=== PATIENT | female | born 1990 | race Asian ===

== ENCOUNTER 2018-03-17 16:42 | Emergency (ER) | payer SELFPAY ==
[~2018-03-17] VITALS: Ht 165.1 cm; Wt 74.1 kg
[2018-03-17] MEDS ORDERED: DIAZEPAM 5 MG TABLET PO ONE (19:00)
[2018-03-17 20:00] VITALS: BP 140/85
== END 2018-03-17 20:06 | disposition home or self-care (01) ==
LOC: EMS 16:43
DX: S06.0X0A Concussion without loss of consciousness, initial encounter (principal); M53.3 Sacrococcygeal disorders, not elsewhere classified; Z88.5 Allergy status to narcotic agent; Z88.6 Allergy status to analgesic agent; V49.40XA Driver injured in collision with unspecified motor vehicles in traffic accident, initial encounter; Y93.89 Activity, other specified; Y92.89 Other specified places as the place of occurrence of the external cause; Y99.8 Other external cause status
CPT/HCPCS: 99283